=== PATIENT | male | born 1965 ===

== ENCOUNTER 2018-06-01 07:02 | Day surgery (SDC) | payer BC ==
[2018-01-19 10:55] VITALS: BMI 24.0
[2018-06-01] MEDS ORDERED: Lactated Ringer's 500 ML IV ONE (08:46)
[2018-06-01] MEDS ORDERED: Propofol 10 mg/ml Inj (20 ML) ONE (08:54)
[2018-06-01] MEDS ORDERED: Midazolam 2 MG/2 ML VIAL ONE (08:55)
[2018-06-01] MEDS ORDERED: Lactated Ringer's 500 ML IV SCH (09:00)
[2018-06-01 09:27] VITALS: TEMP 98
[2018-06-01 10:34] VITALS: BP 122/80; PULSE 82; RESP 20; O2SAT 100
== END 2018-06-01 10:15 | disposition home or self-care (01) ==
LOC: C.ENDO 07:02
PROVIDERS: ATTEND Internal Medicine Gastroenterology
DX: K21.9 Gastro-esophageal reflux disease without esophagitis (principal); K20.9 Esophagitis, unspecified; K29.70 Gastritis, unspecified, without bleeding
CPT/HCPCS: 43239; 82948; 88305; J2250; J2704; J7120